=== PATIENT | female | born 1990 | race Two or more races ===

== ENCOUNTER 2019-05-27 18:33 | Inpatient (IN) | payer OTHER ==
[~2019-05-27] VITALS: Ht 152.4 cm; Wt 71.9 kg
[2019-05-27] MEDS ORDERED: SERT50TA12 PO (18:51)
[2019-05-27] MEDS ORDERED: CLON1 PO ×2 (18:51→19:43)
[2019-05-27 19:16] LABS: BASOPHILS % (AUTO) 0.7 % (0.0-2.0); EOSINOPHILS % (AUTO) 3.9 % (1.0-6.0); HEMATOCRIT 33.3 % (36-46); LYMPHOCYTES # (AUTO) 1.4 K/uL (1.0-4.8); LYMPHOCYTES % (AUTO) 28.2 % (22.0-44.0); MEAN CORPUSCULAR HEMOGLOBIN 29.6 pg (26.0-34.0); MEAN CORPUSCULAR HGB CONC 32.9 G/dL (31.0-37.0); MEAN CORPUSCULAR VOLUME 90 fL (80-100); MONOCYTES # (AUTO) 0.4 K/uL (0.1-1.0); MONOCYTES % (AUTO) 8.5 % (2.0-9.0); NEUTROPHILS # (AUTO) 2.9 K/uL (1.8-7.7); NEUTROPHILS % (AUTO) 58.7 % (40.0-70.0); PLATELET COUNT (AUTO) 319 K/uL (150-450); RED BLOOD CELL COUNT(AUTO) 3.71 MIL/uL (4.00-5.20); RED CELL DISTRIBUTION WIDTH 13.5 % (11.5-14.5)
[2019-05-27 19:35] LABS: ANION GAP 8 mmol/L (8-16); CALCIUM, TOTAL 9.6 mg/dL (8.8-10.5); CARBON DIOXIDE 28 mmol/L (22-29); CHLORIDE 103 mmol/L (98-107); CREATININE 0.69 mg/dL (0.60-1.30); GLOMERULAR FILTR. RATE CALC > 60 mL/min (>60); GLUCOSE,RANDOM 84 mg/dL (70-110); POTASSIUM 4.1 mmol/L (3.5-5.1); SODIUM SERUM 139 mmol/L (136-145); UREA NITROGEN, BLOOD 9 mg/dL (7-18)
[2019-05-27] MEDS ORDERED: SERT100T12 PO (19:43)
[2019-05-27] MEDS ORDERED: CLON.5 PO (19:43)
[2019-05-27] MEDS ORDERED: LEVO25TA9 PO (19:43)
[2019-05-27 19:55] LABS: ALANINE AMINOTRANSFERASE 147 U/L (12-78); ALBUMIN 4.1 g/dL (3.4-5.0); ALKALINE PHOSPHATASE 77 U/L (46-116); ASPARTATE AMINOTRANSFERASE 73 U/L (15-37); BILIRUBIN,TOTAL 0.4 mg/dL (0.1-1.0); HCG,QUANTITATIVE < 1 mIU/mL (0-6); TOTAL PROTEIN, SERUM 7.6 g/dL (6.4-8.2)
[2019-05-27] MEDS ORDERED: MAGNESIUM SULFATE 2 GM/WATER 50 ML IV PRN (22:30)
[2019-05-27] MEDS ORDERED: MAGNESIUM SULFATE 4 GM/WATER 100 ML IV PRN (22:30)
[2019-05-27] MEDS ORDERED: DOCUSATE SODIUM 100 MG CAPSULE PO SCH (22:30)
[2019-05-27] MEDS ORDERED: MAGNESIUM OXIDE 400 MG TABLET PO PRN (22:30)
[2019-05-27] MEDS ORDERED: 0.9% SODIUM CHLORIDE 10 ML SYRINGE IVP PRN ×2 (22:30)
[2019-05-27] MEDS ORDERED: ONDANSETRON HCL 4 MG/2 ML VIAL IVP PRN ×2 (22:30)
[2019-05-27] MEDS ORDERED: POTASSIUM CHLORIDE 20 MEQ ER TABLET PO PRN (22:30)
[2019-05-27] MEDS ORDERED: ACETAMINOPHEN 325 MG TABLET PO PRN (22:30)
[2019-05-27] MEDS ORDERED: SODIUM CHLORIDE 0.9% 1,000 ML IV SCH (22:30)
[2019-05-27] MEDS ORDERED: POTASSIUM CHL 10 MEQ/WATER 50 ML IV PRN (22:30)
[2019-05-27] MEDS ORDERED: MAGNESIUM SULFATE 2 GM, MVI, ADULT NO.1 WITH VIT K 10 ML, THIAMINE HCL 100 MG, FOLIC AC... IV ONE ×5 (23:00)
[2019-05-27 23:28] VITALS: BP 100/51
[2019-05-28] VITALS (10 sets, daily range): BP systolic 95–118; BP diastolic 43–74
[2019-05-28] MEDS: CarBAMazepine 100 MG CHEWABLE TABLET PO SCH ×2 (00:02→08:28)
[2019-05-28] MEDS: DOCUSATE SODIUM 100 MG CAPSULE PO SCH ×3 (00:03→19:50)
[2019-05-28 05:43] LABS: BASOPHILS % (AUTO) 0.7 % (0.0-2.0); EOSINOPHILS % (AUTO) 5.6 % (1.0-6.0); HEMATOCRIT 31.4 % (36-46); HEMOGLOBIN 10.4 g/dL (12.0-16.0); LYMPHOCYTES # (AUTO) 1.5 K/uL (1.0-4.8); LYMPHOCYTES % (AUTO) 34.9 % (22.0-44.0); MEAN CORPUSCULAR HEMOGLOBIN 29.6 pg (26.0-34.0); MEAN CORPUSCULAR HGB CONC 33.1 G/dL (31.0-37.0); MEAN CORPUSCULAR VOLUME 89 fL (80-100); MONOCYTES # (AUTO) 0.4 K/uL (0.1-1.0); MONOCYTES % (AUTO) 10.3 % (2.0-9.0); NEUTROPHILS % (AUTO) 48.5 % (40.0-70.0); PLATELET COUNT (AUTO) 278 K/uL (150-450); RED BLOOD CELL COUNT(AUTO) 3.51 MIL/uL (4.00-5.20); RED CELL DISTRIBUTION WIDTH 13.4 % (11.5-14.5)
[2019-05-28 05:58] LABS: AMPHET/METH SCREEN,URINE POSITIVE (NEGATIVE); BARBITURATE SCREEN, URINE NEGATIVE (NEGATIVE); BENZODIAZEPINES SCREEN,URINE NEGATIVE (NEGATIVE); CANNABINOID SCREEN,URINE POSITIVE (NEGATIVE); COCAINE SCREEN,URINE NEGATIVE (NEGATIVE); METHADONE SCREEN, URINE NEGATIVE (NEGATIVE); OPIATE SCREEN,URINE POSITIVE (NEGATIVE)
[2019-05-28 05:59] LABS: PHENCYCLIDINE SCREEN,URINE NEGATIVE (NEGATIVE)
[2019-05-28 06:02] LABS: ALBUMIN 3.4 g/dL (3.4-5.0); ANION GAP 8 mmol/L (8-16); CALCIUM, TOTAL 8.8 mg/dL (8.8-10.5); CARBON DIOXIDE 27 mmol/L (22-29); CHLORIDE 104 mmol/L (98-107); CREATININE 0.78 mg/dL (0.60-1.30); GLOMERULAR FILTR. RATE CALC > 60 mL/min (>60); GLUCOSE,RANDOM 76 mg/dL (70-110); POTASSIUM 4.1 mmol/L (3.5-5.1); SODIUM SERUM 139 mmol/L (136-145); UREA NITROGEN, BLOOD 10 mg/dL (7-18)
[2019-05-28] MEDS: PANTOPRAZOLE SODIUM 40 MG DR TABLET PO SCH (08:28)
[2019-05-28] MEDS ORDERED: PANTOPRAZOLE SODIUM 40 MG DR TABLET PO SCH (09:00)
[2019-05-28] MEDS ORDERED: ClonazePAM 1 MG TABLET PO SCH ×2 (09:00→21:00)
[2019-05-28] MEDS ORDERED: QUEtiapine FUMARATE 25 MG TABLET PO SCH (11:45)
[2019-05-28] MEDS ORDERED: DIAZEPAM 10 MG TABLET PO PRN (12:15)
[2019-05-28 12:59] LABS: THYROID STIMULATING HORMONE 0.15 uIU/mL (0.36-3.74)
[2019-05-28] MEDS: MULTIVITAMINS WITH MINERALS, THERAPEUTIC TABLET PO SCH (13:17)
[2019-05-28] MEDS: SERTRALINE HCL 50 MG TABLET PO SCH (13:17)
[2019-05-28] MEDS: NICOTINE 21 MG/24 HOUR PATCH TD SCH (14:34)
[2019-05-28] MEDS ORDERED: DiphenhydrAMINE HCL 25 MG CAPSULE PO PRN (14:45)
[2019-05-28] MEDS: DIAZEPAM 5 MG TABLET PO PRN ×2 (16:17→21:50)
[2019-05-28] MEDS: ACETAMINOPHEN 325 MG TABLET PO PRN (19:50)
[2019-05-29] VITALS (7 sets, daily range): BP systolic 95–122; BP diastolic 52–79
[2019-05-29] MEDS ORDERED: DIAZEPAM 5 MG TABLET PO PRN (07:00)
[2019-05-29] MEDS: PANTOPRAZOLE SODIUM 40 MG DR TABLET PO SCH (08:26)
[2019-05-29] MEDS: NICOTINE 21 MG/24 HOUR PATCH TD SCH (08:26)
[2019-05-29] MEDS: SERTRALINE HCL 50 MG TABLET PO SCH (08:26)
[2019-05-29] MEDS: MULTIVITAMINS WITH MINERALS, THERAPEUTIC TABLET PO SCH (08:27)
[2019-05-29] MEDS: DOCUSATE SODIUM 100 MG CAPSULE PO SCH ×2 (08:27→20:58)
[2019-05-29] MEDS: DIAZEPAM 5 MG TABLET PO SCH ×4 (08:30→20:58)
[2019-05-29] MEDS: ACETAMINOPHEN 325 MG TABLET PO PRN (21:00)
[2019-05-30] VITALS (7 sets, daily range): BP systolic 94–125; BP diastolic 55–73
[2019-05-30] MEDS: PANTOPRAZOLE SODIUM 40 MG DR TABLET PO SCH (08:02)
[2019-05-30] MEDS: DOCUSATE SODIUM 100 MG CAPSULE PO SCH ×2 (08:02→21:07)
[2019-05-30] MEDS: DIAZEPAM 5 MG TABLET PO SCH (08:02)
[2019-05-30] MEDS: SERTRALINE HCL 50 MG TABLET PO SCH (08:02)
[2019-05-30] MEDS: MULTIVITAMINS WITH MINERALS, THERAPEUTIC TABLET PO SCH (08:02)
[2019-05-30] MEDS: NICOTINE 21 MG/24 HOUR PATCH TD SCH (08:03)
[2019-05-30] MEDS: DIAZEPAM 5 MG TABLET PO PRN (15:44)
[2019-05-30] MEDS: ACETAMINOPHEN 325 MG TABLET PO PRN ×2 (15:46→21:07)
[2019-05-31] MEDS: DIAZEPAM 5 MG TABLET PO PRN (01:16)
[2019-05-31 04:00] VITALS: BP 107/70
[2019-05-31] MEDS ORDERED: DIAZEPAM 5 MG TABLET PO PRN (07:00)
[2019-05-31] MEDS: DOCUSATE SODIUM 100 MG CAPSULE PO SCH (07:56)
[2019-05-31] MEDS: SERTRALINE HCL 50 MG TABLET PO SCH (07:56)
[2019-05-31] MEDS: MULTIVITAMINS WITH MINERALS, THERAPEUTIC TABLET PO SCH (07:56)
[2019-05-31] MEDS: PANTOPRAZOLE SODIUM 40 MG DR TABLET PO SCH (07:56)
[2019-05-31] MEDS: NICOTINE 21 MG/24 HOUR PATCH TD SCH (07:57)
[2019-05-31 08:00] VITALS: BP 104/54
[2019-05-31] MEDS ORDERED: DIAZEPAM 5 MG TABLET PO SCH (09:00)
[2019-05-31] MEDS: ACETAMINOPHEN 325 MG TABLET PO PRN (09:01)
[2019-06-01] MEDS ORDERED: DIAZEPAM 5 MG TABLET PO PRN (07:00)
== END 2019-05-31 10:45 | DRG 897 ==
LOC: EMS 18:44 → 6S 19:30
PROVIDERS: ADMIT Internal Medicine; ATTEND Internal Medicine
DX: F13.239 Sedative, hypnotic or anxiolytic dependence with withdrawal, unspecified (principal); F33.2 Major depressive disorder, recurrent severe without psychotic features; E03.9 Hypothyroidism, unspecified; D64.9 Anemia, unspecified; E66.9 Obesity, unspecified; F41.1 Generalized anxiety disorder; F17.210 Nicotine dependence, cigarettes, uncomplicated; F15.10 Other stimulant abuse, uncomplicated; F12.10 Cannabis abuse, uncomplicated; Z68.31 Body mass index [BMI] 31.0-31.9, adult; Z59.0 Homelessness; Z79.899 Other long term (current) drug therapy
CPT/HCPCS: 83735; 84443; 93005; G0480; J3411; J3475; J3490; J7030